=== PATIENT | male | born 1980 | race Two or more races ===

== ENCOUNTER 2021-08-03 11:29 | Inpatient (IN) | payer MEDICAID, OTHER ==
[~2021-08-03] VITALS: Ht 193 cm; Wt 111.0 kg
[2021-08-03] MEDS ORDERED: LORazepam 2MG/ML-1ML VIAL IV ONE (13:15)
[2021-08-03] MEDS ORDERED: LACTATED RINGER'S 1,000 ML IV ONE (13:15)
[2021-08-03 13:23] LABS: Urine Bacteria FEW /hpf (None Seen); Urine Blood Negative /uL (Negative); Urine Mucus FEW (None Seen); Urine Specific Gravity 1.019 (1.001-1.035); Urine Sperm PRESENT /hpf (None Seen); Urine WBC 2 /hpf (0 - 3)
[2021-08-03 13:52] LABS: Alcohol, Urine < 3.0 mg/dL (0-10); Amphetamine Screen, Urine POSITIVE (NEGATIVE); Barbiturate Scree,Urine NEGATIVE (NEGATIVE); Benzodiazephine Screen, Urine NEGATIVE (NEGATIVE); Cannabinoid Screen, Urine NEGATIVE (NEGATIVE); Cocaine Screen, Urine NEGATIVE (NEGATIVE); Opiate Scree,Urine NEGATIVE (NEGATIVE); Phencyclidine Screen, Urine NEGATIVE (NEGATIVE)
[2021-08-03 14:13] LABS: Basophils # (auto) 0 10 ^3/uL (0-0.2); Eosinophils # (auto) 0 10 ^3/uL (0-0.8); Hemoglobin 15.6 g/dL (13.5-17.5); Monocytes # (auto) 0.7 10 ^3/uL (0-1.3); Neutrophils # (auto) 6.5 10 ^3/uL (1.6-8.6); White Blood Cell 8.4 10^3/uL (4.4-10.8)
[2021-08-03 14:15] LABS: Basophils % (auto) 0.4 % (0.0-2.0); Hematocrit 47.7 % (41.0-53.0); Lymphocytes # (auto) 1.1 10 ^3/uL (0.4-5.4); Lymphocytes % (auto) 13.2 % (10.0-50.0); Mean Corpuscular Hemoglobin 26.1 pg (28.0-32.0); Mean Corpuscular Hgb Conc. 32.6 g/dL (32.0-36.0); Mean Corpuscular Volume 80.1 fL (80.0-100.0); Monocytes % (auto) 8.6 % (0.0-12.0); Neutrophils % (auto) 77.8 % (37.0-80.0); Red Blood Cells 5.95 10^6/uL (4.5-5.90); Red Cell Distribution Width 14.7 % (11.8-14.3)
[2021-08-03 14:27] LABS: Albumin 4.2 g/dL (3.4-5.0); Calcium 9.2 mg/dL (8.5-10.1); Potassium 4.2 mmol/L (3.5-5.1)
[2021-08-03 14:31] LABS: BUN/Creatinine Ratio 17.7; Bilirubin, Total 0.5 mg/dL (0.2-1.0); Total Protein 8.5 g/dL (6.4-8.2)
[2021-08-03] MEDS ORDERED: CLOPIDOGREL BISULFATE 75 MG TAB PO ONE (15:00)
[2021-08-03] MEDS ORDERED: ASPirin 325 MG TAB PO ONE (15:00)
[2021-08-03] MEDS ORDERED: ACETAMINOPHEN 325 MG TAB PO PRN (21:00)
[2021-08-03] MEDS ORDERED: MORPHINE SULFATE 4 MG/ML SYR/VIAL IV PRN (21:00)
[2021-08-03] MEDS ORDERED: ONDANSETRON HCL 4 MG/2 ML VIAL IV PRN (21:00)
[2021-08-03] MEDS ORDERED: MORPHINE SULFATE INJECTION 2 MG/ML SYRG IV PRN (21:45)
[2021-08-03] MEDS ORDERED: NITROGLYCERIN 0.4 MG SL TAB SL PRN (21:45)
[2021-08-03] MEDS: HEPARIN SODIUM (PORCINE) 5000 UNITS/ML 1ML VIAL SC SCH (22:12)
[2021-08-03] MEDS: SODIUM CHLOR 0.9% PF (SALINE LOCK) 10ML VIAL/SYR IV SCH (22:21)
[2021-08-04] VITALS (7 sets, daily range): BP systolic 92–117; BP diastolic 49–72
[2021-08-04] MEDS: LORazepam 2MG/ML-1ML VIAL IV PRN ×2 (01:43→09:32)
[2021-08-04] MEDS ORDERED: GABA300C10 PO (02:22)
[2021-08-04] MEDS ORDERED: HYDR-4798 PO (02:22)
[2021-08-04] MEDS ORDERED: IBUP800T26 PO (02:22)
[2021-08-04 05:30] LABS: Basophils # (auto) 0 10 ^3/uL (0-0.2); Eosinophils # (auto) 0 10 ^3/uL (0-0.8); Monocytes # (auto) 0.8 10 ^3/uL (0-1.3); White Blood Cell 6.3 10^3/uL (4.4-10.8)
[2021-08-04 05:33] LABS: Albumin 3.3 g/dL (3.4-5.0); Basophils % (auto) 0.4 % (0.0-2.0); Calcium 8.4 mg/dL (8.5-10.1); Eosinophils % (auto) 0.4 % (0.0-7.0); Hemoglobin 13.6 g/dL (13.5-17.5); Lymphocytes # (auto) 1.1 10 ^3/uL (0.4-5.4); Lymphocytes % (auto) 17.9 % (10.0-50.0); Mean Corpuscular Hemoglobin 26.1 pg (28.0-32.0); Mean Corpuscular Hgb Conc. 33.1 g/dL (32.0-36.0); Mean Corpuscular Volume 78.8 fL (80.0-100.0); Monocytes % (auto) 12.3 % (0.0-12.0); Neutrophils # (auto) 4.3 10 ^3/uL (1.6-8.6); Potassium 3.9 mmol/L (3.5-5.1); Red Blood Cells 5.21 10^6/uL (4.5-5.90); Red Cell Distribution Width 14.9 % (11.8-14.3)
[2021-08-04 05:37] LABS: BUN/Creatinine Ratio 21.7; Bilirubin, Total 0.7 mg/dL (0.2-1.0); Total Protein 7.3 g/dL (6.4-8.2)
[2021-08-04] MEDS: SODIUM CHLOR 0.9% PF (SALINE LOCK) 10ML VIAL/SYR IV SCH ×3 (06:27→23:02)
[2021-08-04] MEDS: ASPirin 81 mg TAB PO SCH (09:21)
[2021-08-04] MEDS: FAMOTIDINE (10MG/ML) 2ML VL IV SCH (09:21)
[2021-08-04] MEDS: HEPARIN SODIUM (PORCINE) 5000 UNITS/ML 1ML VIAL SC SCH ×2 (09:32→23:03)
[2021-08-04] MEDS ORDERED: METOPROLOL TARTRATE 25 MG TAB PO ONE (11:15)
[2021-08-04 11:59] LABS: Cholesterol 196 mg/dL (< 200); HDL Cholesterol 34 mg/dL (40-59); LDL Cholesterol 127 mg/dL (< 100); Triglycerides 207 mg/dL (< 150)
[2021-08-04] MEDS ORDERED: ATORVASTATIN 20 MG TAB PO SCH (22:00)
[2021-08-04] MEDS: METOPROLOL TARTRATE 25 MG TAB PO SCH (23:02)
[2021-08-05 05:00] VITALS: BP 96/56
[2021-08-05] MEDS: SODIUM CHLOR 0.9% PF (SALINE LOCK) 10ML VIAL/SYR IV SCH ×3 (05:56→21:02)
[2021-08-05 09:00] VITALS: BP 107/71
[2021-08-05] MEDS: ASPirin 81 mg TAB PO SCH (10:07)
[2021-08-05] MEDS: METOPROLOL TARTRATE 25 MG TAB PO SCH ×2 (10:13→21:03)
[2021-08-05] MEDS: LISINOPRIL 20 MG TAB PO SCH (10:13)
[2021-08-05] MEDS: FAMOTIDINE (10MG/ML) 2ML VL IV SCH (10:14)
[2021-08-05] MEDS: HEPARIN SODIUM (PORCINE) 5000 UNITS/ML 1ML VIAL SC SCH ×2 (10:19→21:04)
[2021-08-05] MEDS: ATORVASTATIN 20 MG TAB PO SCH ×2 (10:30→21:02)
[2021-08-05 13:00] VITALS: BP 109/57
[2021-08-05 16:00] VITALS: BP 94/54
[2021-08-05] MEDS: DOCUSATE SOD 100 MG CAP PO PRN (16:21)
[2021-08-05] MEDS: HYDROcodone-ACET 5/325MG TAB PO PRN (19:47)
[2021-08-05 20:55] VITALS: BP 93/51
[2021-08-06 03:50] VITALS: BP 92/55
[2021-08-06] MEDS: SODIUM CHLOR 0.9% PF (SALINE LOCK) 10ML VIAL/SYR IV SCH ×3 (05:17→20:56)
[2021-08-06 09:00] VITALS: BP 101/65
[2021-08-06] MEDS: LISINOPRIL 20 MG TAB PO SCH (09:54)
[2021-08-06] MEDS: DOCUSATE SOD 100 MG CAP PO PRN (09:55)
[2021-08-06] MEDS: METOPROLOL TARTRATE 25 MG TAB PO SCH ×2 (09:55→21:54)
[2021-08-06] MEDS: FAMOTIDINE (10MG/ML) 2ML VL IV SCH (09:55)
[2021-08-06] MEDS: ASPirin 81 mg TAB PO SCH (09:56)
[2021-08-06] MEDS: HEPARIN SODIUM (PORCINE) 5000 UNITS/ML 1ML VIAL SC SCH ×2 (10:02→20:56)
[2021-08-06 13:00] VITALS: BP 102/61
[2021-08-06 17:00] VITALS: BP 106/66
[2021-08-06] MEDS: ATORVASTATIN 20 MG TAB PO SCH (20:55)
[2021-08-06] MEDS: HYDROcodone-ACET 5/325MG TAB PO PRN (20:56)
[2021-08-06 22:14] VITALS: BP 100/58
[2021-08-07] VITALS (8 sets, daily range): BP systolic 92–140; BP diastolic 54–103
[2021-08-07] MEDS: SODIUM CHLOR 0.9% PF (SALINE LOCK) 10ML VIAL/SYR IV SCH ×2 (05:12→14:28)
[2021-08-07] MEDS: HEPARIN SODIUM (PORCINE) 5000 UNITS/ML 1ML VIAL SC SCH (10:00)
[2021-08-07] MEDS: LISINOPRIL 20 MG TAB PO SCH (10:46)
[2021-08-07] MEDS: FAMOTIDINE (10MG/ML) 2ML VL IV SCH (10:47)
[2021-08-07] MEDS: METOPROLOL TARTRATE 25 MG TAB PO SCH (10:47)
[2021-08-07] MEDS: ASPirin 81 mg TAB PO SCH (10:48)
[2021-08-07] MEDS ORDERED: LISI20TA28 PO (10:51)
[2021-08-07] MEDS ORDERED: ASPI-498 PO (10:51)
[2021-08-07] MEDS ORDERED: ATO40T PO (10:51)
[2021-08-07] MEDS ORDERED: MET50T PO (10:51)
== END 2021-08-07 17:50 | disposition home or self-care (01) | DRG 190 ==
LOC: ER 11:29 → TELE 21:39 → TELE-CENTR 23:42
PROVIDERS: ADMIT Nurse Practitioner Family; ATTEND Family Medicine
DX: I21.4 Non-ST elevation (NSTEMI) myocardial infarction (principal); N17.9 Acute kidney failure, unspecified; E78.00 Pure hypercholesterolemia, unspecified; F15.10 Other stimulant abuse, uncomplicated; I25.10 Atherosclerotic heart disease of native coronary artery without angina pectoris; Z20.822 Contact with and (suspected) exposure to COVID-19; Z59.00 Homelessness unspecified; Z59.01 Sheltered homelessness; Z79.899 Other long term (current) drug therapy; Z82.49 Family history of ischemic heart disease and other diseases of the circulatory system; Z71.51 Drug abuse counseling and surveillance of drug abuser
CPT/HCPCS: 36415; 71046; 80053; 80061; 80307; 81001; 83036; 83735; 83880; 84484; 85025; 85379; 87426; 93005; 93306; 96361; 96374; 99291; G0378; J3490

== ENCOUNTER 2023-01-30 09:05 | Emergency (ER) | payer MEDICAID ==
[~2023-01-30] VITALS: Ht 185.4 cm; Wt 98.6 kg
[~2023-01-30 09:05] MED LIST: ASPI-498 PO; ATO40T PO; GABA-1250 PO; HYDR-4798 PO; IBUP-1455 PO; LISI20TA56 PO; MET50T PO
[2023-01-30 10:05] LABS: Basophils # (auto) 0 10 ^3/uL (0-0.2); Basophils % (auto) 0.6 % (0.0-2.0); Eosinophils # (auto) 0 10 ^3/uL (0-0.8); Eosinophils % (auto) 0.5 % (0.0-7.0); Hematocrit 45.4 % (41.0-53.0); Hemoglobin 14.7 g/dL (13.5-17.5); Lymphocytes # (auto) 1.5 10 ^3/uL (0.4-5.4); Lymphocytes % (auto) 27.3 % (10.0-50.0); Mean Corpuscular Hemoglobin 26.9 pg (28.0-32.0); Mean Corpuscular Hgb Conc. 32.4 g/dL (32.0-36.0); Mean Corpuscular Volume 82.9 fL (80.0-100.0); Monocytes # (auto) 0.5 10 ^3/uL (0-1.3); Monocytes % (auto) 8.7 % (0.0-12.0); Neutrophils # (auto) 3.4 10 ^3/uL (1.6-8.6); Neutrophils % (auto) 62.9 % (37.0-80.0); Nucleated Red Blood Cells % 0.1 %; Red Blood Cells 5.47 10^6/uL (4.5-5.90); Red Cell Distribution Width 14.3 % (11.8-14.3); White Blood Cell 5.4 10^3/uL (4.4-10.8)
[2023-01-30 10:23] LABS: Potassium 4.1 mmol/L (3.5-5.1)
[2023-01-30 10:28] LABS: BUN/Creatinine Ratio 19.1 (10.0-20.0); Bilirubin, Total 0.9 mg/dL (0.2-1.0); Magnesium 2.7 mg/dL (1.6-2.6); Total Protein 7.9 g/dL (6.4-8.2)
[2023-01-30 10:51] LABS: Urine Bacteria NONE SEEN /hpf (None Seen); Urine Blood Negative /uL (Negative); Urine Mucus FEW (None Seen); Urine Specific Gravity 1.033 (1.001-1.035); Urine WBC 1 /hpf (0 - 3)
[2023-01-30 11:07] LABS: Alcohol, Urine < 3.0 mg/dL (0-10); Amphetamine Screen, Urine NEGATIVE (NEGATIVE); Barbiturate Scree,Urine NEGATIVE (NEGATIVE); Benzodiazephine Screen, Urine NEGATIVE (NEGATIVE); Cannabinoid Screen, Urine NEGATIVE (NEGATIVE); Cocaine Screen, Urine NEGATIVE (NEGATIVE); Opiate Scree,Urine NEGATIVE (NEGATIVE); Phencyclidine Screen, Urine NEGATIVE (NEGATIVE)
[2023-01-30 12:42] VITALS: BP 123/90
== END 2023-01-30 12:49 | disposition home or self-care (01) ==
LOC: ER 09:05
DX: F15.10 Other stimulant abuse, uncomplicated (principal); R53.1 Weakness; Z90.49 Acquired absence of other specified parts of digestive tract; Z98.890 Other specified postprocedural states; Z79.1 Long term (current) use of non-steroidal anti-inflammatories (NSAID); Z79.82 Long term (current) use of aspirin; Z79.899 Other long term (current) drug therapy
CPT/HCPCS: 36415; 71045; 80053; 80307; 81001; 82962; 83735; 85025; 93005

== ENCOUNTER 2025-04-29 16:53 | Emergency (ER) | payer MEDICAID, MEDICARE ==
[~2025-04-29] VITALS: Ht 182.9 cm; Wt 101.8 kg
[~2025-04-29 16:53] MED LIST changes: -ATO40T PO; +ATOR-507 PO
--- NOTE | 2025-04-29 17:46 | ED.PDOC ---
Back pain HPI HPI Comments 44-year-old male presents to the ER with a prior medical history of chronic right knee pain, high lipids, hypertension: Surgical history of right knee surgery, right elbow surgery in the chief complain of right knee pain. Patient reports on currently not seeing a PCP and a pain management for his pain due from him moving back into the [facility]. Patient came in today asking for a knee brace due from his chronic knee pain. Denies chills, fever, N/V/D, SOB, CP. No other associated symptoms, modifiers, recent injuries or sick contacts present at this time. Chief Complaint: Lower Extremity Time Seen by MD: 17:35 Primary Care Provider: DIANNE Reviewed Notes: Nurses Notes, Medications, Allergies Allergies: Coded Allergies: NO KNOWN ALLERGIES (Unverified , 08/03/21) Home Meds Active Scripts Atorvastatin Calcium (Lipitor) 40 Mg Tab, 1 TAB PO QPM, #90 TAB 1 Refill Prov:JOAQUÍN ROGEL MD 08/07/21 Metoprolol Tartrate (LOPRESSOR TABLET) 50 Mg Tb, 1 TAB PO BID, #60 TAB 5 Refills Prov:JOAQUÍN ROGEL MD 08/07/21 Lisinopril (Lisinopril) 20 Mg Tab, 1 TAB PO DAILY, #90 TAB 1 Refill Prov:JOAQUÍN ROGEL MD 08/07/21 Aspirin (ASPIRIN 81) 81 Mg Tab, 81 MG PO DAILY PRN for 90 Days, #90 TAB Prov:JOAQUÍN ROGEL MD 08/07/21 Reported Medications Gabapentin (Gabapentin) 300 Mg Cap, 1 CAP PO TID 08/04/21 Hydrocodone-Acetaminophen (Hydrocodone Bitartrate/AC 10-325 mg) 1 Tab Tab, 1 TAB PO Q4HPRN, TAB 08/04/21 Ibuprofen Micronized (Ibuprofen) 800 Mg Tab, 1 TAB PO TID PRN for pain 08/04/21 Information Source: Patient Mode of Arrival: Ambulatory Timing: Came on: Gradually Duration: Since onset Severity: Moderate Prehospital treatment: None Quality: Aching Onset: Spontaneous Circumstance: Other (None) History of: Other (Chronic right knee pain) Associated signs and symptoms: None Past Medical History PAST MEDICAL HISTORY: High Lipids, HTN Past Medical History (Other): Chronic knee pain Surgical History: Appendectomy Surgical History (Other): Right elbow surgery, right knee surgery Family History Family History: Reviewed,noncontributory to illness Social History Smoker: Non-Smoker Alcohol: Denies ETOH Use Drugs: Methamphetamine Lives In: Home Constitutional: denies: chills, diaphoresis, fatigue, fever, malaise, sweats, weakness, others EENTM: denies: blurred vision, double vision, ear bleeding, ear discharge, ear drainage, ear pain, ear ringing, eye pain, eye redness, hearing loss, mouth pain, mouth swelling, nasal discharge, nose bleeding, nose congestion, nose radha n, photophobia, tearing, throat pain, throat swelling, voice changes, others Respiratory: denies: cough, hemoptysis, orthopnea, SOB at rest, shortness of breath, SOB with excertion, stridor, wheezing, others Cardiovascular: denies: chest pain, dizzy spells, diaphoresis, Dyspnea on exertion, edema, irregular heart beat, left arm pain, lightheadedness, palpitations, PND, syncope, others Gastrointestinal: denies: abdomen distended, abdominal pain, blood streaked bowels, constipated, diarrhea, dysphagia, difficulty swallowing, hematemesis, melena, nausea, poor appetite, poor fluid intake, rectal bleeding, rectal pain, vomiting, others Genitourinary: denies: burning, dysuria, flank pain, frequency, hematuria, incontinence, penile discharge, penile sore, pain, testicle pain, testicle swelling, urgency, others Neurological: denies: dizziness, fainting, headache, left sided numbness, left sided weakness, numbness, paresthesia, pre-existing deficit, right sided numbness, right sided weakness, seizure, speech problems, tingling, tremors, weakness, others Musculoskeletal: reports: others (Knee pain); denies: back pain, gout, joint pain, joint swelling, muscle pain, muscle stiffness, neck pain Integumetry: denies: bruises, change in color, change in hair/nails, dryness, laceration, lesions, lumps, rash, wounds, others Allergic/Immunocompromised: denies: Difficulty Healing, Frequent Infections, Hives, Itching, others Hematologic/Lymphatic: denies: anemia, blood clots, easy bleeding, easy bruising, swollen glands, others Endocrine: denies: excessive hunger, excessive sweating, excessive thirst, excessive urination, flushing, intolerance to cold, intolerance to heat, unexplained weight gain, unexplained weight loss, others Psychiatric: denies: anxiety, bipolar disorder, depression, hopeless, panic disorder, schizophrenia, sleepless, suicidal, others All Other Systems: Reviewed and Negative Physical Exam General Appearance: Mild Distress, Normal HEENT: Normal ENT Inspection, PERRL/EOMI, Pharynx Normal, TMs Normal Neck: Full Range of Motion, Non-Tender, Normal, Normal Inspection Respiratory: Chest Non-Tender, Lungs Clear, No Accessory Muscle Use, No Resp iratory Distress, Normal Breath Sounds Cardiovascular: No Edema, No JVD, No Murmur, No Gallop, Normal Peripheral Pulses, Regular Rate/Rhythm Breast Exam: Deferred Gastrointestinal: No Organomegaly, Non Tender, No Pulsatile Mass, Normal Bowel Sounds, Soft Genitalia: Deferred Pelvic: Deferred Rectal: Deferred Extremities: No calf tenderness, Normal capillary refill, Normal inspection, Normal range of motion, Non-tender, No pedal edema Musculoskeletal : Location: Bilateral Extremity Location: Other (Patient has chronic pain syndrome hurts everywhere but mostly has a chronic pain in his right knee where he had surgery and severe arthritis usually sees pain management) Apperance: Normal Neurologic: Alert, land sales agent II-XII nml as Tested, No Motor Deficits, Normal Affect, Normal Mood, No Sensory Deficits Cerebellar Function: Normal Reflexes: Normal Skin: Dry, Normal Color, Warm Peripheral Pulses: 1+ carotid (R), 1+ femoral (R) Lymphatic: No Adenopathy Was a procedure done? Was a procedure done?: No Back Pain Differential Dx Differential Diagnosis: Musculoskeletal Pain X-Ray, Labs, Meds, VS Vital Signs Date Time Temp Pulse Resp B/P (MAP) Pulse Ox O2 Delivery O2 Flow Rate FiO2 04/29/25 16:58 98.4 68 18 144/83 98 98.4 X-Ray, Labs, Meds, VS Comment Patient has chronic pain syndrome he has also chronic pain to his right knee and would like to have brace He will follow up with the his pain management in his pcp Time of 1ST Reevaluation: 18:05 Reevaluation 1ST: Unchanged Time of 2ND Reevaluation: 17:57 Reevaluation 2ND: Unchanged Consultation: PCP, Other Patient Education/Counseling: Diagnosis, Treatment, Prognosis, Need For Follow Up Family Education/Counseling: Diagnosis, Treatment, Prognosis, Need For Follow Up, No Family Present SEPSIS Sepsis Screen Date sepsis recognized/suspect: Apr 29, 2025 Time Sepsis recognized/suspect: 1700 Recent Procedure: No On Antibiotic Therapy: No Respiratory Rate >20: No Heart Rate >90: No Temp<36 C (96.8 F) or >38.3 C: No SBP <90 or MAP <65 mmHG: No New Acute Mental Status Change: No Is the patient on CPAP, BIPAP,: No Vital Signs Date Time Temp Pulse Resp B/P (MAP) Pulse Ox O2 Delivery O2 Flow Rate FiO2 04/29/25 16:58 98.4 68 18 144/83 98 98.4 Departure 1 Departure Time of Disposition: 17:58 Impression: Primary Impression: Pain syndrome, chronic Additional Impression: Knee pain, chronic Qualified Codes: M25.561 - Pain in right knee; G89.29 - Other chronic pain Disposition: HOME / SELF CARE / HOMELESS Condition: Fair Additional Instructions: Use local heat and follow up with your pain management e-Prescriptions Hydrocodone-Acetaminophen (Hydrocodone Bitartrate/AC 5-325 mg) 1 Tab Tab 1 TAB PO BID for 10 Days, #20 TAB Prov: JESSICA CANNON MD 04/29/25 Naproxen (NAPROSYN TABLET) 500 Mg Tb 1 TAB PO BID for 10 Days, #20 TAB 1 Refill Prov: JESSICA CANNON MD 04/29/25 Discharged With: Self Critical Care Note Critical Care Time?: No Stability Stability form required: No Heart Score Heart Score: Heart Score Response (Comments) Value History N/A 0 EKG N/A 0 Age <45 0 Risk Factors No known risk factors 0 Troponin N/A 0 Total 0 I personally scribed for JESSICA CANNON MD ([email or web address]) on 04/29/25 at 17:46. Electronically submitted by Adán Gabriel ([email or web address]). JESSICA CANNON MD Apr 29, 2025 17:46
[2025-04-29] MEDS ORDERED: NAP500T PO (18:04)
[2025-04-29] MEDS ORDERED: HYDR-4902 PO (18:04)
[2025-04-29 18:20] VITALS: BP 136/64; PULSE 73; RESP 18; TEMP 98.2; O2SAT 98
== END 2025-04-29 19:37 | disposition home or self-care (01) ==
LOC: ER 16:57
DX: G89.29 Other chronic pain (principal); M25.561 Pain in right knee; I10 Essential (primary) hypertension; E78.5 Hyperlipidemia, unspecified; Z79.82 Long term (current) use of aspirin; Z79.899 Other long term (current) drug therapy; Z90.49 Acquired absence of other specified parts of digestive tract